=== PATIENT | female | born 1980 | race Caucasian/White ===

== ENCOUNTER 2017-11-29 08:32 | Emergency (ER) | payer OTHER ==
[~2017-11-29] VITALS: Ht 177.8 cm; Wt 89.8 kg
[~2017-11-29 08:32] MED LIST: CELEXA 20 MG TA20 M1 PO; GLUCOPHAGE500 MG PO; HYDROCODON-ACE1 EAC7 PO; ORTHO-NOVUM1 EAC2 PO; PHENERGAN 25 MG25 MG PO
[2017-11-29] MEDS ORDERED: ZOLOFT50 MG PO (08:47)
[2017-11-29] MEDS ORDERED: TRAMADOL 50 MG50 MG PO (08:48)
[2017-11-29] MEDS ORDERED: NORCO 5-325 TA1 EACH PO (10:03)
[2017-11-29 10:19] VITALS: BP 125/80
== END 2017-11-29 10:20 | disposition home or self-care (01) ==
LOC: M.ERS 08:32
DX: G89.18 Other acute postprocedural pain (principal); M25.561 Pain in right knee; F41.9 Anxiety disorder, unspecified; I10 Essential (primary) hypertension; F17.210 Nicotine dependence, cigarettes, uncomplicated; F10.99 Alcohol use, unspecified with unspecified alcohol-induced disorder

== ENCOUNTER 2018-01-13 00:23 | Emergency (ER) | payer OTHER ==
[~2018-01-13] VITALS: Ht 177.8 cm; Wt 90.7 kg
[~2018-01-13 00:23] MED LIST changes: +NORCO 5-325 TA1 EACH PO; +TRAMADOL 50 MG50 MG PO; +ZOLOFT50 MG PO
[2018-01-13] MEDS ORDERED: XANAX1 MG (00:33)
[2018-01-13] MEDS ORDERED: METOPROLOL SUCC50 MG (00:34)
[2018-01-13 01:02] LABS: HEMATOCRIT 46.1 % (37.0-47.0); HEMOGLOBIN 15.5 gm/dL (12.0-15.0); MCHC 33.6 g/dL (28.0-37.0); MCV 89.2 fL (80.0-100.0); MPV 8.1 fl. (7.2-11.1); NUCLEATED RBCS 0 /100WBC; PLATELET COUNT* 293 thou/uL (150-400); RBC 5.16 mil/uL (4.20-5.00); RDW-CV 13.7 % (10.5-14.5); WBC 12.6 thou/uL (4.0-11.0)
[2018-01-13 01:06] LABS: CALCIUM 9.2 mg/dL (8.5-10.1); CREATININE 0.8 mg/dL (0.6-1.3); POTASSIUM 4.1 mmol/L (3.5-5.1)
[2018-01-13 01:07] LABS: URINE BLOOD NEGATIVE (Negative); URINE CLARITY CLEAR; URINE COLOR YELLOW; URINE GLUCOSE-RANDOM NEGATIVE (Negative); URINE KETONES TRACE (Negative); URINE LEUKOCYTES-REFLEX NEGATIVE (Negative); URINE NITRITE-REFLEX NEGATIVE (Negative); URINE PROTEIN NEGATIVE (Negative); URINE SPECIFIC GRAVITY 1.025 (1.005-1.030); URINE UROBILINOGEN 0.2 E.U./dl (0.2-1.0)
[2018-01-13 01:11] LABS: TOTAL BILIRUBIN 0.6 mg/dL (<0.1-1.0); TOTAL PROTEIN 7.9 g/dL (6.4-8.2)
[2018-01-13 01:13] LABS: ICTOTEST (BILI CONFIRMATORY) Negative (Negative); URINE BILIRUBIN 1+ (Negative)
[2018-01-13 02:00] LABS: ABSOLUTE EOSINOPHILS 0.4 thou/uL (0.0-0.7); ABSOLUTE LYMPHOCYTES 0.6 thou/uL (0.8-5.3); ABSOLUTE MONOCYTES 0.8 thou/uL (0.0-1.2); ABSOLUTE NEUTROPHILS 10.8 thou/uL (1.6-8.1)
[2018-01-13 02:01] LABS: GIANT PLATELETS RARE; PLATELET ESTIMATE ADEQUATE
[2018-01-13 03:06] LABS: INFLUENZA A ANTIGEN None Detected (None Detect); INFLUENZA B ANTIGEN None Detected (None Detect)
[2018-01-13] MEDS ORDERED: PHENERGAN12.5 M2 RECTAL (03:15)
[2018-01-13] MEDS ORDERED: NORCO 5-325 TA1 EACH PO (03:15)
[2018-01-13] MEDS ORDERED: ZOFRAN ODT4 MG PO (03:15)
[2018-01-13 04:23] VITALS: BP 123/75
== END 2018-01-13 04:26 | disposition home or self-care (01) ==
LOC: M.ERS 00:23
PROVIDERS: Personal Emergency Response Attendant
DX: K52.9 Noninfective gastroenteritis and colitis, unspecified (principal); F41.9 Anxiety disorder, unspecified; I10 Essential (primary) hypertension; Z72.0 Tobacco use